=== PATIENT | female | born 1945 | race Caucasian/White ===

== ENCOUNTER → 2020-02-02 15:50 | Outpatient (CLI) | payer MEDICARE, SELFPAY ==
--- NOTE | 2020-02-02 15:53 | CT_ITS ---
STUDY: LOW DOSE CT LUNG CANCER SCREENING REASON FOR EXAM: Female, 74 years old. LUNG NODULE, TOBACCO DEPENDENCY HISTORY. Smoking hx of 40yr 2ppd. Quit 5 yr ago. HTN-rx controlled. No hx cancer or diabetes. COPD RADIATION DOSAGE (If Supplied By Facility): CTDIvol = ( 2.01 ) mGy, DLP = ( 73.24 ) mGycm TECHNIQUE: No contrast was administered. Low dose technique was utilized (average mAS-38 and kVp 120). 1.25 mm axial source images with a slice interval of 1.25-mm were reconstructed in lung windows. 2.5 mm axial source images with a slice interval of 2.5-mm were reconstructed in lung windows. 5.0 mm axial source images with a slice interval of 5.0-mm were reconstructed in soft tissue windows. Nodule measured using lung windows on PACS and/or independent workstation with automated measurement of minimum and maximum diameter. Nodule measurement reported as average diameter rounded to the nearest whole number. Growth is defined as an increase ins size of greater than 1.5 mm. COMPARISON: February 06 2013 Findings: Lungs are moderately to severely emphysematous. There is scarring in the right apex. There are no high-risk focal pulmonary findings. There is a benign faceted pleural contacting left lower lobe lateral basal segment 1.1 cm granuloma stable since 2012, time interval of 7 years. Airways are patent. Pleural surfaces are intact. There is moderate coronary artery disease. Mediastinal contents are normal. CT/Low Dose CT Lung Screening IMPRESSION: 1. Lung RADS category 2. Benign granuloma stable for 7 years. 2. Severe emphysema. 3. Moderate coronary artery disease. IMPORTANT NOTES FOR USE: ACR Lung-RADS Version 1.0 Assessment Categories Release Date: October 23, 2013 Category: Coded 0-4 bases on nodule(s) with highest degree of suspicion. Negative screen is defined as categories 1 and 2; a positive screen is defined as categories 3 and 4. Category 3 and 4A nodules that are unchanged on interval CT should be coded as category 2, and individuals returned to screening in 12 months. Category 4X: Category 3 or 4 nodules with additional imaging findings that increase the suspicion of lung cancer, such as spiculation, GGN that doubles in size in 1 year, enlarged lymph notes, etc. Category Modifiers: S (significant finding unrelated to lung cancer) and C (prior history of treated lung cancer) may be added to the 0-4 Lung-RADS Electronically Signed: Paola Grewal, at 18:54 EDT Tel , Service support ,
== END ==
PROVIDERS: PCP Internal Medicine; Referring Provider Internal Medicine Critical Care Medicine; Visit Provider Internal Medicine Critical Care Medicine
DX: F17.211 Nicotine dependence, cigarettes, in remission (principal)
CPT/HCPCS: G0297

== ENCOUNTER → 2021-12-10 | Outpatient (CLI) | payer MEDICARE, SELFPAY ==
--- NOTE | 2021-12-10 09:40 | RAD_ITS ---
STUDY: X-RAY CHEST REASON FOR EXAM: Female, 75 years old. Worsening shortness of breath TECHNIQUE: PA and lateral views of the chest. COMPARISON: CT from 02/12/2020 FINDINGS: Lungs are mildly hyperexpanded with chronic interstitial changes. There is a nodule projecting between the left eighth and ninth posterior ribs which is unchanged compared to the previous CT from 02/02/2020. No acute process or effusion. Normal size heart. Normal mediastinum and anselmo. Normal visualized pulmonary arteries. Normal visualized aortic arch and descending thoracic aorta. There are diffuse degenerative changes of the visualized thoracic spine. Normal visualized ribs, clavicles, and shoulders. There is no demonstrated abnormality of the visualized soft tissue structures of the upper abdomen. RAD/Chest PA and Lateral IMPRESSION: Mildly hyperexpanded lungs without a superimposed acute pulmonary process Stable 1.1 cm left lower lobe nodule unchanged from CT of 2019 Electronically Signed: Abel Martin MD at 15:11 EDT ,
[2021-12-10 09:42] LABS: Anion Gap 2 (5-15); BUN 21 mg/dL (7-18); BUN/Creat Ratio 20.6 RATIO (10-20); Calcium,Total 9.5 mg/dL (8.5-10.1); Chloride 104 mmol/L (98-107); Creatinine, Serum 1.02 mg/dL (0.55-1.02); EST Glomerular Filtration Rate 56 mL/min (>60); Est Glom Filt Rate - Afr Amer 68 mL/min (>60); Glucose 112 mg/dL (74-106); Potassium 4.4 mmol/L (3.5-5.1); Sodium Level 138 mmol/L (136-145)
[2021-12-10 09:53] LABS: BNP,B-Type NATRIURETIC PEPTIDE 24.1 pg/mL (0-100)
== END | disposition home or self-care (01) ==
LOC: PAVLAB 09:17 → RAD 09:32
PROVIDERS: PCP Internal Medicine; Referring Provider Nurse Practitioner Acute Care; Visit Provider Nurse Practitioner Acute Care
DX: R06.00 Dyspnea, unspecified (principal)
CPT/HCPCS: 36415; 71046; 80048; 83880

== ENCOUNTER → 2021-12-16 | Outpatient (CLI) | payer MEDICARE, SELFPAY ==
[2021-12-16 11:53] VITALS: PULSE 71; PULSE 75; PULSE 78; PULSE 81; PULSE 83; PULSE 84; PULSE 85; PULSE 87; O2SAT 86; O2SAT 87; O2SAT 90; O2SAT 92; O2SAT 93
--- NOTE | 2021-12-16 12:00 | CPS ---
PATIENT ARRIVED WITH OWN Admaxim 5 CONCENTRATOR FOR TESTING. TESTING BEGAN ON RA. 3 REST BREAKS WERE TAKEN TO APPLY/INCREASE O2 AND FOR INCREASED WOB. PT ENDED UP ON 4LPM DEMAND FLOW TO ACHIEVE SPO2 >88% WITH EXERTION.
--- NOTE | 2021-12-16 13:29 | PCM.PSN.6M ---
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 Pre-test Oxygen Delivery Method Room Air Pulse Ox (%) 92 Pulse Rate (60-100 beats/min) 71 Dyspnea Carmel Scale (0-10) 1 1st minute Oxygen Delivery Method Room Air Pulse Ox (%) 92 Pulse Rate (60-100 beats/min) 78 Dyspnea Carmel Scale (0-10) 2 Number of Rests Taken 0 Reported Symptoms Increased Work of Breathing 2nd minute Oxygen Delivery Method Room Air Pulse Ox (%) 87 Pulse Rate (60-100 beats/min) 81 Dyspnea Carmel Scale (0-10) 3 Number of Rests Taken 1 Reported Symptoms Increased Work of Breathing 3rd minute Oxygen Flow Rate (L/min) (L/min) 2 Oxygen Delivery Method Nasal Cannula Pulse Ox (%) 86 Pulse Rate (60-100 beats/min) 84 Dyspnea Carmel Scale (0-10) 4 Number of Rests Taken 1 Reported Symptoms Increased Work of Breathing 4th minute Oxygen Flow Rate (L/min) (L/min) 3 Oxygen Delivery Method Nasal Cannula Pulse Ox (%) 87 Pulse Rate (60-100 beats/min) 83 Dyspnea Carmel Scale (0-10) 4 Number of Rests Taken 1 Reported Symptoms Increased Work of Breathing 5th minute Oxygen Flow Rate (L/min) (L/min) 4 Oxygen Delivery Method Nasal Cannula Pulse Ox (%) 90 Pulse Rate (60-100 beats/min) 85 Dyspnea Carmel Scale (0-10) 4 Number of Rests Taken 0 Reported Symptoms Increased Work of Breathing 6th minute Oxygen Flow Rate (L/min) (L/min) 4 Oxygen Delivery Method Nasal Cannula Pulse Ox (%) 90 Pulse Rate (60-100 beats/min) 87 Dyspnea Carmel Scale (0-10) 4 Number of Rests Taken 0 Reported Symptoms Increased Work of Breathing Post-test Oxygen Flow Rate (L/min) (L/min) 2 Oxygen Delivery Method Nasal Cannula Pulse Ox (%) 93 Pulse Rate (60-100 beats/min) 75 Dyspnea Carmel Scale (0-10) 2 Reported Symptoms Increased Work of Breathing Full Laps Walked 11 Partial Lap, Number of Tiles Walked 37 Total Distance Walked (ft) 686 12/16/21 12:00 Cardiopulmonary Services by Gladys Pereira PATIENT ARRIVED WITH OWN Coffee [employer] Power 5 CONCENTRATOR FOR TESTING. TESTING BEGAN ON RA. 3 REST BREAKS WERE TAKEN TO APPLY/INCREASE O2 AND FOR INCREASED WOB. PT ENDED UP ON 4LPM DEMAND FLOW TO ACHIEVE SPO2 >88% WITH EXERTION. Initialized on 12/16/21 12:00 - END OF NOTE Interpretation Interpretation: The patient was noted to be 92% on room air at rest. However, with ambulation patient did desaturate in the second minute requiring supplemental oxygen. In total, the patient required 4 L nasal cannula to maintain ambulation throughout testing. In summary, the patient traveled 686 feet over the course of 6 minutes with no assistive devices and 3 breaks. These findings are consistent with a respiratory limitation exercise tolerance. Recommendations Recommendations: The patient requires no supplemental oxygen at rest, but should be using 4 L pulsed dose with any ambulation.
== END | disposition home or self-care (01) ==
PROVIDERS: PCP Internal Medicine; Referring Provider Nurse Practitioner Acute Care; Visit Provider Nurse Practitioner Acute Care
DX: R06.00 Dyspnea, unspecified (principal)
CPT/HCPCS: 94618

== ENCOUNTER → 2021-12-24 | Outpatient (CLI) | payer MEDICARE, SELFPAY ==
--- NOTE | 2021-12-24 10:52 | ECHOL_ITS ---
Reason For Study: SOB Procedure This was a 2D Doppler, Color Flow transthoracic echocardiogram. Exam performed in department. Left Ventricle Normal LV size. Left ventricular systolic function is normal. The estimated ejection fraction is 65 %. Unable to assess diastolic dysfunction. No regional wall motion abnormalities noted. Right Ventricle Normal RV size. Normal systolic function. Atria Normal left atrium. Normal right atrium. Lipomatous hypertrophy of the atrial septum. No doppler evidence for ASD. Mitral Valve There is mild mitral annular calcification. Anterior leaflet diffuse mitral valve thickening. Trivial mitral valve insufficiency. Tricuspid Valve Normal tricuspid valve. Trivial tricuspid valve insufficiency. Right ventricular systolic pressure estimated to be 81 mmHg. Severe pulmonary hypertension. Aortic Valve Trisinus/trileaflet aortic valve. Normal aortic valve. Pulmonic Valve The pulmonic valve is not well visualized. Great Vessels Calcified aortic root. Pericardium/Pleural No pericardial effusion. MMode/2D Measurements & Calculations LVIDd: 4.8 cm IVSd: 0.68 cm LAV(MOD-sp4): 24.6 ml LVIDs: 2.6 cm LVPWd: 0.66 cm FS: 45.2 % LVAd ap4: 18.9 cm2 SV(MOD-sp4): 33.4 ml SV(sp4-el): 34.0 ml LVLd ap4: 6.7 cm EDV(MOD-sp4): 46.2 ml EDV(sp4-el): 45.3 ml LVAs ap4: 7.9 cm2 LVLs ap4: 4.8 cm ESV(MOD-sp4): 12.8 ml ESV(sp4-el): 11.2 ml EF(MOD-sp4): 72.3 % EF(sp4-el): 75.2 % LA A4 area: 11.5 cm2 RA A4 area: 10.2 cm2 Doppler Measurements & Calculations TR max jaya: 419.9 cm/sec TR max P.3 mmHg ECHO/Echo, Limited Study Interpretation Summary Left ventricular systolic function is normal. The estimated ejection fraction is 65 %. There is mild mitral annular calcification. Anterior leaflet diffuse mitral valve thickening. Trivial mitral valve insufficiency. Trivial tricuspid valve insufficiency. Calcified aortic root. Lipomatous hypertrophy of the atrial septum. Right ventricular systolic pressure estimated to be 81 mmHg. Severe pulmonary hypertension. Unable to assess diastolic dysfunction. Ordering Physician: Gabriella Euceda Referring Physician: Gabriella Euceda Performed By: Gisela Fontanez RCS
== END | disposition home or self-care (01) ==
PROVIDERS: PCP Internal Medicine; Referring Provider Nurse Practitioner Acute Care; Visit Provider Nurse Practitioner Acute Care
DX: R06.00 Dyspnea, unspecified (principal)
CPT/HCPCS: 93308

== ENCOUNTER → 2022-01-05 | Outpatient (CLI) | payer MEDICARE, SELFPAY ==
[2022-01-05 11:17] LABS: Rheumatoid Factor < 10.0 IU/mL (<15)
[2022-01-07 01:06] LABS: Cytoplasmic Ab (C-ANCA) <1:20 titer (Neg:<1:20)
[2022-01-08 17:13] LABS: CCP IgG Antibodies < 1 units (0-19); Perinuclear Ab (P-ANCA) <1:20 titer (Neg:<1:20)
[2022-01-08 17:22] LABS: ANTINUCLEAR ANTIBODIES DIRECT Negative (Negative)
== END | disposition home or self-care (01) ==
LOC: PAVLAB 10:31
PROVIDERS: PCP Internal Medicine; Referring Provider Nurse Practitioner Acute Care; Visit Provider Nurse Practitioner Acute Care
DX: R06.00 Dyspnea, unspecified (principal)
CPT/HCPCS: 36415; 86038; 86200; 86225; 86235; 86256; 86431

== ENCOUNTER → 2022-03-18 | Outpatient (CLI) | payer MEDICARE, SELFPAY ==
[2022-03-18 11:56] LABS: Absolute Lymphocyte Count 1.14 X10^3/uL (0.83-4.51); Absolute Neutrophil Count 5.2 X10^3/uL (2.0-7.7); Basophil# 0.04 X10^3/uL; Basophil% 0.6 % (0-1); Eosinophil# 0.09 X10^3/uL; Eosinophils% 1.3 % (0-5); Hematocrit 39.9 % (37-47); Hemoglobin 12.9 g/dL (12.0-15.0); Lymphocyte # 1.14 X10^3/ul (0.83-4.51); Lymphocyte % 15.8 % (19-41); Mean Corp Hgb Conc 32.3 g/dL (32-36); Mean Corpuscular Hgb 31.4 pg (27.0-32.0); Mean Corpuscular Volume 97.1 fL (81-99); Monocyte# 0.68 X10^3/uL; Monocyte% 9.4 % (0-10); NRBC Flagged by Analyzer 0 % (0-5); Neutrophil # 5.23 X10^3/uL (2.7-7.7); Neutrophil % 72.6 % (47-70); Platelet Count 272 K/mm3 (150-450); RBC Distribution Width CV 12.7 % (11.6-14.6); RBC Distribution Width SD 45.1 fl (35.1-43.9); Red Blood Count 4.11 M/mm3 (4.2-5.4); White Blood Count 7.2 K/mm3 (4.4-11.0)
[2022-03-18 12:21] LABS: Anion Gap 6 (5-15); BUN 30 mg/dL (7-18); Calcium,Total 9.7 mg/dL (8.5-10.1); Chloride 101 mmol/L (98-107); Creatinine, Serum 1.07 mg/dL (0.55-1.02); EST Glomerular Filtration Rate 53 mL/min (>60); Est Glom Filt Rate - Afr Amer 64 mL/min (>60); Glucose 105 mg/dL (74-106); Potassium 3.9 mmol/L (3.5-5.1); Sodium Level 140 mmol/L (136-145)
== END | disposition home or self-care (01) ==
LOC: LAB 11:25
PROVIDERS: PCP Internal Medicine; Referring Provider Internal Medicine Cardiovascular Disease; Visit Provider Internal Medicine Cardiovascular Disease
DX: E78.00 Pure hypercholesterolemia, unspecified (principal); R06.00 Dyspnea, unspecified; I25.10 Atherosclerotic heart disease of native coronary artery without angina pectoris
CPT/HCPCS: 36415; 80048; 85025

== ENCOUNTER 2022-03-27 07:48 | Day surgery (SDC) | payer MEDICARE, SELFPAY ==
[2022-03-26 07:47] VITALS: BMI 25.6
[2022-03-27 09:05] LABS: Blood Gas Specimen Type VEN; VBG BASE EXCESS 3 mmol/L (-1.0-3.5); VBG Bicarbonate 29 mmol/L (22-26); VBG PO2 38 mmHg (25-40); VBG SO2 70 % (50-70); VBG TCO2 30 mmol/L (23-33); VBG pCO2 49.5 mmHg (41-51); VBG pH 7.37 (7.32-7.42)
[2022-03-27 09:05] LABS: Base Excess 3 mmol/L (-2 to +2); Bicarbonate 27.4 mmol/L (22-26); Blood Gas Specimen Type ART; PO2 67 mmHG (75-100); SO2 93 % (95-99); Total Carbon Dioxide 29 mmol/L; pCO2 44.7 mmHg (35-45)
[2022-03-27 09:10] LABS: Blood Gas Specimen Type VEN; VBG BASE EXCESS 4 mmol/L (-1.0-3.5); VBG Bicarbonate 30 mmol/L (22-26); VBG PO2 36 mmHg (25-40); VBG SO2 68 % (50-70); VBG TCO2 31 mmol/L (23-33); VBG pCO2 49.4 mmHg (41-51); VBG pH 7.38 (7.32-7.42)
--- NOTE | 2022-03-30 13:06 | CL.D_ITS ---
Patient Name: DEBORAH MCNEIL Study Date: 03/27/2022 Performing: Curtis Wei MD Ht: 59 inches 149.86 cm : 1945 Wt: 127.01 lbs 57.61 kg Age: 76 Gender: female BSA: 1.52 PROCEDURE(S) PERFORMED [id number]-([id number])RHC/LHC/COR/LV CLINICAL PROFILE AND INDICATIONS Indications: Other Heart Failure: None Stress/Imaging Stress/Image Study Performed: No CAD Presentations: Symptom unlikely to be ischemic. CONCLUSIONS Non obstructive coronary arteries Normal LV size, wall motion,and systolic function Mild pulmonary hypertension RECOMMENDATIONS She does have mild coronary artery disease and mild pulmonary hypertension. Her pulmonary pressures are significantly different from her echocardiographic numbers. Would recommend discontinuation of the propranolol and follow-up with pulmonary service. DESCRIPTION OF PROCEDURE The patient arrived to the procedure lab. The risks and benefits of the procedure as well as a full description of our services here and current unavailability of surgical backup were fully explained to the patient and/or their significant other prior to the catheterization. The Timeout was completed, verifying the correct patient and procedure. The patient's procedural site was prepped and draped in the usual fashion. Local anesthetic was given subcutaneously to right radial region with Lidocaine 2%. Local anesthetic was given subcutaneously to right groin region with Lidocaine 2%. Using a modified Seldinger technique, arterial access was obtained via the right radial artery, a 6Fr sheath was inserted. Venous access was obtained via the right femoral vein, a 7Fr sheath was inserted. A 7Fr thermal dilution catheter was inserted and right heart pressures were recorded, it was then advanced to PA position for cardiac outputs. Thermal dilution cardiac outputs were then recorded. O2 saturations were then obtained. The Thermal dilution catheter was then removed. Left Coronary Artery selective angiography was performed in multiple views using a 5 Fr. 4.0 [place] catheter. Right Coronary Artery selective angiography was then performed in multiple views using a 5 Fr. 4.0 [place] catheter. Left Ventriculography was performed in ZULETA projection using a 5 Fr. [place] catheter. LV to AO pullback pressures were then recorded.The arterial sheath was pulled and a TR Band was applied for hemostasis CORONARY ANGIOGRAPHY DOMINANCE: Right Dominant LEFT HEART ASSESSMENT Left Ventricular Ejection Fraction: by LV Gram 60 % Normal LV wall motion Normal Left Ventricular systolic function RIGHT HEART ASSESSMENT Thermal CO: 3.1 Thermal CI: 2.04 Luca CO: 5.01 Luca CI: 3.3 PW: 17 PA: 39/19 27 RV: 45/9 14 RA: 14/8 11 PVR: 174 SVR: 1133 Right Heart pressures - elevated LEFT MAIN: Angiographically normal, Moderate calcification LEFT ANTERIOR DESCENDING ARTERY: Mild calcification, Mild luminal irregularities less than 30% CIRCUMFLEX ARTERY: Mild luminal irregularities less than 30% RIGHT CORONARY ARTERY: Mild luminal irregularities COMPLICATIONS No Complications PROCEDURE MEDICATIONS Versed .5 mg IV Fentanyl 50 mcg IV Oxygen: 2 L/min via nasal cannula SUMMARY OF HEMODYNAMIC DATA Time AIR REST ECG 08:18:09 ECG 08:19:09 RA 14/8 (11) SV 08:58:38 RV 45/9, 14 08:59:59 PW 23/ (17) PV 09:06:40 PA 39/19 (27) PA 09:07:02 PA 44/20 (29) 09:10:05 RV 45/8, 15 09:10:12 AO 109/61 (82) SA 09:12:52 LV 103/6, 21 09:17:19 LV 107/7, 18 09:17:26 LV 103/13, 21 09:18:02 LV 90/13, 22 09:18:09 LVp 80/11, 21 09:18:13 AOp 90/47 (63) 09:18:18 Type SV CO (l/m) CI (l/m/ HR Time AIR REST Thermal 47.70 3.10 2.04 65 08:18:09 Luca 77.10 5.01 3.30 65 08:18:09 Label % O2 Pres/Loc Time AIR REST AO 93 PV 09:21:36 PA 68 PA 09:21:42 RA 70 SV 09:21:51 Signed By Curtis Wei MD On 03/30/2022 13:05:17 Signed By Curtis Wei MD On 03/27/2022 09:27:46 Curtis Wei MD
== END 2022-03-27 12:23 | disposition home or self-care (01) ==
PROVIDERS: PCP Internal Medicine; Referring Provider Internal Medicine Cardiovascular Disease; Visit Provider Internal Medicine Cardiovascular Disease
DX: I27.21 Secondary pulmonary arterial hypertension (principal); J44.9 Chronic obstructive pulmonary disease, unspecified; I25.10 Atherosclerotic heart disease of native coronary artery without angina pectoris; Z79.899 Other long term (current) drug therapy; F41.9 Anxiety disorder, unspecified; I10 Essential (primary) hypertension; E78.00 Pure hypercholesterolemia, unspecified; Z87.891 Personal history of nicotine dependence
CPT/HCPCS: 82803; 93460; 99152; 99153; J7040; C1751; C1769; C1894; Q9967

== ENCOUNTER → 2022-03-31 | Outpatient (CLI) | payer MEDICARE, SELFPAY ==
--- NOTE | 2022-04-01 10:18 | PFT ---
INTRODUCTION: The patient is a 76-year-old female that presents for pulmonary function studies secondary to a diagnosis of dyspnea. Respiratory therapy reported good patient effort. Bronchodilators were used during testing. INTERPRETATION: Forced expiration spirometry demonstrates the presence of a severe large airways obstructive ventilatory defect. There was a significant response to aerosolized bronchodilators. Spirograms are of fair quality but do not plateau indicating slow emptying of the lungs. Body plethysmography was performed and demonstrated an elevated TLC and RV, indicative of underlying hyperinflation and air trapping. Diffusing capacity by single breath CO was severely reduced at 36% of predicted. IMPRESSION: Partially reversible severe large airways obstructive ventilatory defect with associated hyperinflation, air trapping and symmetric reduction in diffusing capacity.
== END | disposition home or self-care (01) ==
PROVIDERS: PCP Internal Medicine; Referring Provider Nurse Practitioner Acute Care; Visit Provider Nurse Practitioner Acute Care
DX: R06.00 Dyspnea, unspecified (principal)
CPT/HCPCS: 94060; 94726; 94729

== ENCOUNTER → 2022-04-02 | Outpatient (CLI) | payer MEDICARE, SELFPAY ==
[2022-04-02 08:31] VITALS: PULSE 64; PULSE 70; PULSE 71; PULSE 72; PULSE 77; PULSE 79; PULSE 81; PULSE 83; O2SAT 81; O2SAT 89; O2SAT 93; O2SAT 95; O2SAT 96; O2SAT 98
--- NOTE | 2022-04-02 08:34 | CPS ---
Patient came in with 3L pulse dose on, patient's RA SpO2 was 95%. Patient started on RA and at the 3 min yumiko the patient's SpO2 was 81%. Patient continued test on 3L pulse dose, and SpO2 stayed above 90 for remainder of test Kristan FISHER
--- NOTE | 2022-04-03 08:30 | PCM.PSN.6M ---
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 Pre-test Oxygen Delivery Method Room Air Pulse Ox (%) 95 Pulse Rate (60-100 beats/min) 64 Dyspnea Carmel Scale (0-10) 0.5 Exertion Carmel Scale (6-20) 6 1st minute Oxygen Delivery Method Room Air Pulse Ox (%) 93 Pulse Rate (60-100 beats/min) 70 2nd minute Oxygen Delivery Method Nasal Cannula Pulse Ox (%) 89 Pulse Rate (60-100 beats/min) 81 3rd minute Oxygen Delivery Method Nasal Cannula Pulse Ox (%) 81 Pulse Rate (60-100 beats/min) 83 Dyspnea Carmel Scale (0-10) 5 Exertion Carmel Scale (6-20) 11 4th minute Oxygen Flow Rate (L/min) (L/min) 3 Oxygen Delivery Method Nasal Cannula Pulse Ox (%) 98 Pulse Rate (60-100 beats/min) 72 5th minute Oxygen Flow Rate (L/min) (L/min) 3 Oxygen Delivery Method Nasal Cannula Pulse Ox (%) 95 Pulse Rate (60-100 beats/min) 77 6th minute Oxygen Flow Rate (L/min) (L/min) 3 Oxygen Delivery Method Venturi Mask Pulse Ox (%) 96 Pulse Rate (60-100 beats/min) 79 Dyspnea Carmel Scale (0-10) 4 Exertion Carmel Scale (6-20) 11 Post-test Oxygen Flow Rate (L/min) (L/min) 3 Oxygen Delivery Method Nasal Cannula Pulse Ox (%) 96 Pulse Rate (60-100 beats/min) 71 Full Laps Walked 14 Partial Lap, Number of Tiles Walked 50 Total Distance Walked (ft) 876 Interpretation Interpretation: The patient ambulated 876 feet over the course of 6 minutes beginning on room air without assistive devices. Pretesting oxygen saturation was noted to be 95% on room air. With ambulation, the neetu oxygen saturation was 81%. 3 L/min of pulsed dose supplemental oxygen was applied and the patient was able to complete the remainder of the test while maintaining appropriate oxygen saturations. Recommendations Recommendations: 3 L/min of pulsed dose supplemental oxygen should be utilized with exertion.
== END | disposition home or self-care (01) ==
LOC: PSN 08:01
PROVIDERS: PCP Internal Medicine; Referring Provider Nurse Practitioner Acute Care; Visit Provider Nurse Practitioner Acute Care
DX: R06.00 Dyspnea, unspecified (principal)
CPT/HCPCS: 94618